=== PATIENT | male | born 1990 | race Caucasian/White ===

== ENCOUNTER 2016-11-11 21:20 | Emergency (ER) | payer BC ==
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
== END 2016-11-12 00:50 | disposition home or self-care (01) ==
LOC: ER 21:20
DX: R10.13 Epigastric pain (principal); Z79.899 Other long term (current) drug therapy